=== PATIENT | male | born 1980 | race Caucasian/White ===

== ENCOUNTER 2025-09-30 12:32 | Emergency (ER) | payer OTHER ==
[~2025-09-30] VITALS: Ht 175.3 cm; Wt 84.1 kg
[2025-09-30 12:36] VITALS: TEMP 98
[2025-09-30 13:00] VITALS: BP 128/82; PULSE 72; RESP 18; O2SAT 99
[2025-09-30] MEDS ORDERED: LIDO-57 TP (13:20)
[2025-09-30] MEDS ORDERED: ACET-2247 PO (13:20)
[2025-09-30] MEDS: ACETAMINOPHEN 500 MG TABLET PO ONE (13:22)
[2025-09-30] MEDS: LIDOCAINE 5% TRANSDERMAL PATCH TD ONE (13:22)
== END 2025-09-30 13:35 | disposition home or self-care (01) ==
LOC: EMS 12:32
DX: M54.50 Low back pain, unspecified (principal)
CPT/HCPCS: 99284; Z7502; Z7610